=== PATIENT | male | born 1970 | race African-American/Black ===

== ENCOUNTER 2019-10-04 22:33 | Inpatient (IN) | payer SELFPAY ==
[2019-10-04 23:46] LABS: Troponin I 0.183 ng/mL (< 0.028)
[2019-10-04] MEDS ORDERED: Nitroglycerin 0.4 MG TAB (25 Tab Bottle) PO PRN (23:51)
[2019-10-04] MEDS ORDERED: cloNIDine 0.1 MG TAB PO PRN (23:52)
[2019-10-04] MEDS ORDERED: Acetaminophen 325 MG TAB PO PRN (23:53)
[2019-10-04] MEDS ORDERED: Ondansetron ODT 4 MG TAB PO PRN (23:53)
[2019-10-04] MEDS ORDERED: Calcium Carbonate 500 MG ChewTAB PO PRN (23:53)
[2019-10-04] MEDS ORDERED: Ondansetron PF 4 MG/2 ML Vial IVP PRN (23:53)
[2019-10-04] MEDS ORDERED: Nitroglycerin 2% Ointment 1 INCH/1 GM Packet TOP SCH (23:59)
[2019-10-05 00:01] LABS: CKMB 8.9 ng/mL (0-6.6)
[2019-10-05 00:09] LABS: Amphetamine Not Detected (NotDetected); Barbiturates Screen Not Detected (NotDetected); Benzodiazepine Screen Not Detected (NotDetected); Cocaine Metabolite Screen Not Detected (NotDetected); Medtox Control Line Valid? VALID (VALID); Medtox Reader # READER 4; Methadone Not Detected (NotDetected); Methamphetamine Not Detected (NotDetected); Opiate Screen Not Detected (NotDetected); Oxycodone Screen Not Detected (NotDetected); Phencyclidine (PCP) Not Detected (NotDetected); THC/Cannabinoid Screen Not Detected (NotDetected); Tricyclic Screen Not Detected (NotDetected)
[2019-10-05] MEDS ORDERED: Aspirin 325 MG TAB PO SCH (00:15)
[2019-10-05] MEDS ORDERED: Nitroglycerin 0.4 MG TAB 1 EACH ONE (00:57)
[2019-10-05] MEDS: Nitroglycerin 2% Ointment 1 INCH/1 GM Packet TOP SCH ×4 (02:36→20:07)
[2019-10-05 03:01] LABS: Troponin I 0.172 ng/mL (< 0.028)
[2019-10-05] MEDS ORDERED: Labetalol HCl 100 MG/20 ML VIAL SLOW IVP PRN (03:21)
[2019-10-05 05:00] LABS: Anion Gap 11 mmol/L (10-20); BUN (Urea Nitrogen) 29 mg/dL (8.9-20.6); Calc. Creatinine Clearance 0 mL/min (70-130); Calcium 8.6 mg/dL (7.8-10.44); Carbon Dioxide 24 mmol/L (22-29); Chloride 107 mmol/L (98-107); Estimated GFR-MDRD 47; Glucose 84 mg/dL (70-105); Magnesium 2.1 mg/dL (1.6-2.6); Potassium 3.9 mmol/L (3.5-5.1); Sodium 138 mmol/L (136-145)
[2019-10-05 06:36] LABS: Cardiac Risk 3.2 (Less than 4.5)
--- NOTE | 2019-10-05 06:37 | HP ---
PRIMARY CARE PHYSICIAN: [facility]. CHIEF COMPLAINT: Shortness of breath. HISTORY OF PRESENT ILLNESS: The patient is a 48-year-old male with family history of heart disease, presented to the emergency room at [place] with worsening shortness of breath that has been ongoing for the last 2 weeks. He also has intermittent palpitations with lightheadedness. The shortness of breath is mainly on [id number] exertion. He had mild chest tightness as well. No diaphoresis, nausea, vomiting, syncope, recent immobilization, travel, fever, or chills reported. He does not take any medications at this time. He does not go for regular physical checkups. In the emergency room at [place], his initial vital signs showed a temperature of 97.2, pulse rate of 93, respirations of 16, with a blood pressure of 180/116, O2 saturation 98% on room air. His chest x-ray was negative for significant pulmonary edema. His EKG showed sinus rhythm with PACs, left axis deviation, left anterior fascicular block, and left ventricular hypertrophy. The patient received aspirin and nitroglycerin and was transferred to this facility. He received another sublingual nitroglycerin at this facility. PAST MEDICAL HISTORY: 1. Family history of heart disease. 2. Hypertension, currently not on any medications. PAST SURGICAL HISTORY: Reviewed with the patient and none. ALLERGIES: NO KNOWN DRUG ALLERGIES. SOCIAL HISTORY: The patient smokes up to half pack a day for many years. He denies any alcohol or drug use. FAMILY HISTORY: Positive for premature coronary artery disease. His father was diagnosed with heart disease in his 40s. REVIEW OF SYSTEMS: All other review of systems reviewed and were found negative. CURRENT HOME MEDICATIONS: Reviewed with the patient and none. He takes ibuprofen on an as-needed basis. PHYSICAL EXAMINATION: VITAL SIGNS: As discussed above. GENERAL: A 48-year-old male, in no apparent distress at rest. HEENT: Head, atraumatic and normocephalic. Sclerae anicteric. Moist mucous membranes. No oral lesion. NECK: Supple. No JVD appreciated. No carotid bruit. LUNGS: Showed diminished air entry at bilateral bases. No wheezing, rales, or rhonchi. HEART: S1 and S2 present. Regular rate and rhythm. No rubs or gallops. There is 2/6 systolic murmur over the left lateral sternal border. ABDOMEN: Soft and obese. Bowel sounds present. No rebound or guarding. No costovertebral angle tenderness. EXTREMITIES: Trace edema in bilateral lower extremity. No calf tenderness. SKIN: Warm and dry. LYMPH NODES: No palpable lymph nodes in the neck. PERIPHERAL VASCULAR: Radial pulses palpable bilaterally. MUSCULOSKELETAL: No joint swelling or tenderness. LABORATORY FINDINGS: CBC showed WBC 7.7 with hemoglobin 13.7, hematocrit 41.8, and platelet count of 279. Chemistry showed sodium 139, potassium 3.8, chloride 106, bicarb 23, BUN 31, and creatinine 2.17. BNP was 918. Troponins 0.183 with CK of 581 and CK-MB 8.9. Urine drug screen was negative. IMAGING STUDIES: Chest x-ray and EKG by my review as discussed above. IMPRESSION: 1. Chest discomfort along with shortness of breath on exertion. 2. Suspected unstable angina. 3. Chronic kidney disease, stage 3. 4. Hypertension with hypertensive heart disease. 5. Family history of heart disease. 6. Chronic anemia suspected due to nutritional deficiency. 7. Elevated CK. 8. Ongoing tobacco abuse. PLAN: 1. The patient will be monitored on the telemetry unit. Echocardiogram will be obtained. We will consult Cardiology. The patient will be started on aspirin along with nitroglycerin patch. 2. Sublingual nitroglycerin as needed. We will start him on carvedilol. We will start statins once CK improves. The patient was counseled on lifestyle modification. We will keep him n.p.o. for Cardiology evaluation. Job ID: [id number]
[2019-10-05 06:52] VITALS: BMI 30.7
[2019-10-05 06:52] LABS: Hemoglobin A1c 5.3 % (4.0-6.0)
[2019-10-05] MEDS ORDERED: Labetalol HCl 100 MG/20 ML VIAL SLOW IVP SCH (07:45)
[2019-10-05] MEDS: Aspirin 325 mg Enteric Coated Tablet PO SCH (08:45)
[2019-10-05] MEDS: Famotidine 20 MG TAB PO SCH (08:45)
[2019-10-05] MEDS: Carvedilol 6.25 MG TAB PO SCH ×2 (08:46→16:24)
[2019-10-05] MEDS ORDERED: Communication Order-Pharmacy FS SCH (11:00)
[2019-10-05] MEDS ORDERED: Sodium Chloride 0.9% 1,000 ML IV SCH (11:00)
--- NOTE | 2019-10-05 15:05 | CON ---
DATE OF CONSULTATION: HISTORY: Bhupinder Ortega is a 48-year-old black male without previous significant health problems. Over the last 2 weeks, he has noted that his heart would beat very rapidly and then seemed to pause. He would become somewhat short of breath with this. He also states he would have chest tightness, which was fairly constant, although it did seem to be worse with exertion. He would have episodes of diaphoresis and nausea, but no vomiting associated with this. He ultimately went to the emergency room in [place] last night, was found to have a blood pressure of 180/116. He was given 4 chewable aspirin 81 mg and topical nitrates were placed. He was then transferred here and given one sublingual nitroglycerin here. He has since been started on carvedilol 12.5 mg b.i.d. He denies any chest discomfort at the present time. He also was found to have significantly elevated creatinine and denies any previous kidney problems, although he does take ibuprofen on a daily basis and he was instructed that he should stop that. PAST MEDICAL HISTORY: He denies any previous history of hypertension, diabetes , or hypercholesterolemia. MEDICATIONS: Ibuprofen one daily. ALLERGIES: LISINOPRIL. OPERATIONS: None. SOCIAL HISTORY: He smokes 1/2 pack per day, he did smoke up to one pack per day in the past. He also has 5 or 6 beers per day. He works building trailers. He states he does not have a drug plan. FAMILY HISTORY: Father of myocardial infarction at age 42. REVIEW OF SYSTEMS: Ten-point review of systems is otherwise unremarkable. PHYSICAL EXAMINATION: VITAL SIGNS: Blood pressure 172/104 and pulse of 76. HEENT: PERRL. NECK: Supple. CHEST: Clear. CARDIAC: S1 and S2 are normal without any S3, S4, or murmurs. Carotid upstrokes are normal without bruits. ABDOMEN: Normal bowel sounds without tenderness or organomegaly. EXTREMITIES: No clubbing, cyanosis, or edema. NEUROLOGIC: Grossly intact. SKIN: Warm and dry. LABORATORY DATA: EKG revealed sinus rhythm with PACs. Probable septal infarction, left ventricular hypertrophy with nonspecific T-wave changes. Hemoglobin 13.7, hematocrit 41.8, white count 7700, and platelets 279,000. Sodium 138, potassium 3.9, chloride 107, carbon dioxide 24, BUN 29, and creatinine 1.85 (creatinine in [place] was 2.17). Troponin-I is up to 0.183, CK-MB 8.9, and total CK 581. Cholesterol 175, triglycerides 107, HDL 54, and LDL 101. TSH is normal. BNP 917.9. IMPRESSION: 1. Probable [id number] myocardial infarction, type 1. 2. Acute coronary syndrome. 3. Hypertension, untreated. 4. Hypercholesterolemia. 5. Smoker. 6. Positive family history. 7. Acute kidney injury. He does take ibuprofen daily and was told that he needs to stop using that, to only use Tylenol. 8. 5 to 6 beers per day. PLAN: Echocardiogram will be performed. Mr. Ortega does need to undergo cardiac catheterization; however, I somewhat hesitant to go to the [facility] today with his current renal function. He is asymptomatic at the present time and it would be best to gently hydrate him prior to going to the cardiac [facility] laboratory. He will be started on intravenous saline 50 mL/h and creatinine will be rechecked in the morning. Risks of catheterization were discussed including , myocardial infarction, dye reaction, vascular injury, CVA, transfusion, limb loss, renal loss, etc. We discussed potential renal damage with his poor kidney function. We discussed possible dialysis, although that would seem to be low risk if he is hydrated overnight. Risks of stent placement were discussed including , myocardial infarction, emergent CABG, restenosis, stent thrombosis, vessel perforation, etc. He understands and is agreeable to proceed. He does not have a drug plan, and so I would use Plavix rather than Brilinta for dual-antiplatelet therapy. He has never had any gastrointestinal bleeding, stroke, and does not have any upcoming surgeries, and so a drug-eluting stent would be placed if needed. He understands and is agreeable to proceed. Job ID: [id number] MTDD
[2019-10-05] MEDS: Atorvastatin Calcium 40 MG TAB PO SCH (20:07)
[2019-10-05] MEDS ORDERED: Enoxaparin Sodium 40 MG/0.4 ML SYRINGE SC SCH (21:00)
[2019-10-06] MEDS: Nitroglycerin 2% Ointment 1 INCH/1 GM Packet TOP SCH ×2 (03:41→05:53)
[2019-10-06 05:07] LABS: Anion Gap 11 mmol/L (10-20); BUN (Urea Nitrogen) 34 mg/dL (8.9-20.6); Calc. Creatinine Clearance 64 mL/min (70-130); Calcium 8.8 mg/dL (7.8-10.44); Carbon Dioxide 23 mmol/L (22-29); Chloride 109 mmol/L (98-107); Estimated GFR-MDRD 44; Glucose 95 mg/dL (70-105); Potassium 3.9 mmol/L (3.5-5.1); Sodium 139 mmol/L (136-145)
[2019-10-06] MEDS: Carvedilol 6.25 MG TAB PO SCH ×2 (05:52→16:06)
[2019-10-06] MEDS: Aspirin 325 mg Enteric Coated Tablet PO SCH (05:53)
[2019-10-06] MEDS: Famotidine 20 MG TAB PO SCH ×2 (05:53→20:27)
[2019-10-06] MEDS ORDERED: Sodium Chloride 0.9% 1,000 ML IV SCH ×2 (06:00→08:46)
[2019-10-06] MEDS ORDERED: Heparin 10,000 UNITS/1 ML VIAL ONE (07:56)
[2019-10-06] MEDS ORDERED: Midazolam HCl 2 mg/2 ml Vial ONE (08:08)
[2019-10-06] MEDS ORDERED: Fentanyl 100 MCG/2 ML VIAL ONE (08:08)
[2019-10-06] MEDS ORDERED: Protamine Sulfate 50 MG/5 ML VIAL ONE (08:25)
[2019-10-06] MEDS ORDERED: hydrALAZINE 20 MG/ML VIAL ONE (08:26)
[2019-10-06] MEDS ORDERED: Sodium Chloride 0.9% 200 ML IV PRN (08:45)
[2019-10-06] MEDS ORDERED: Acetaminophen/Codeine 30-300mg Tablet PO PRN ×2 (08:45)
[2019-10-06] MEDS ORDERED: Iopamidol 370 76% 100 ML VIAL ONE (09:16)
[2019-10-06] MEDS: hydrALAZINE 25 MG TAB PO SCH ×3 (09:17→20:27)
[2019-10-06] MEDS ORDERED: cloNIDine 0.1 MG TAB PO SCH (10:00)
--- NOTE | 2019-10-06 13:01 | PDOC.HOSPP ---
- Subjective Encounter Date: 10/06/19 Encounter Time: 08:00 Subjective: ovenright, underwent cardiac catheter. this morning, chest pain resolved and has no complaints. - Objective Vital Signs & Weight: Vital Signs (12 hours) Temp Pulse Resp BP BP Pulse Ox 10/06/19 11:01 97.8 F 59 L 76 H 172/98 H 98 10/06/19 07:51 97.7 F 67 16 176/110 H 97 10/06/19 07:07 95 10/06/19 03:06 98.4 F 74 20 163/107 H 95 Weight Weight 220 lb I&O: 10/05/19 10/06/19 10/07/19 06:59 06:59 06:59 Intake Total 70 1611 Output Total 1225 750 Balance 70 386 -750 Result Diagrams: 10/06/19 04:02 Hospitalist ROS - Review of Systems Constitutional: denies: fever, chills, sweats, weakness, malaise, other Respiratory: denies: cough, dry, shortness of breath, hemoptysis, SOB with excertion, pleuritic pain, sputum, wheezing, other Cardiovascular: denies: chest pain, palpitations, orthopnea, paroxysmal noc. dyspnea, edema, light headedness, other Gastrointestinal: denies: nausea, vomiting, abdominal pain, diarrhea, constipation, melena, hematochezia, other Genitourinary: denies: dysuria, frequency, incontinence, hematuria, retention, other - Medication Medications: Active Medications Generic Name Dose Route Start Last Admin Trade Name Freq PRN Reason Stop Dose Admin Atorvastatin Calcium 40 mg 10/05/19 21:00 10/05/19 20:07 Lipitor PO 40 mg HS VENECIA Administration Carvedilol 12.5 mg 10/05/19 08:00 10/06/19 05:52 Coreg PO 12.5 mg BID-WM VENECIA Administration Hydralazine HCl 75 mg 10/06/19 09:00 10/06/19 09:17 Apresoline PO 75 mg TID VENECIA Administration Sodium Chloride 1,000 mls @ 125 mls/hr 10/06/19 08:46 10/06/19 09:32 Normal Saline 0.9% IV 10/06/19 15:00 1,000 mls .Q8H VENECIA Administration - Exam Neck: no JVD Heart: RRR, no murmur, no gallops, no rubs, normal peripheral pulses Respiratory: CTAB, no wheezes, no rales, no ronchi, normal chest expansion, no tachypnea, normal percussion Gastrointestinal: soft, non-tender, non-distended, normal bowel sounds, no palpable masses, no hepatomegaly, no splenomegaly, no bruit Extremities: no edema Psychiatric: normal affect, normal behavior Hosp A/P - Plan #NSTEMI -s/p cardiac cath, pending final report -conitnue asp, atorva, isosorbide dinitrate, coreg as per cardiology #HTN -currently poorly controlled -regimen recently adjusted by cardiology -continue to follow; goal BP per AHA < 130/80
[2019-10-06] MEDS ORDERED: Losartan 25 MG TAB PO SCH (13:15)
[2019-10-06] MEDS: Atorvastatin Calcium 40 MG TAB PO SCH (20:27)
[2019-10-06] MEDS: Isosorbide Dinitrate 20 MG TAB PO SCH (20:27)
[2019-10-07 05:15] LABS: Anion Gap 10 mmol/L (10-20); BUN (Urea Nitrogen) 25 mg/dL (8.9-20.6); Calc. Creatinine Clearance 67 mL/min (70-130); Calcium 8.5 mg/dL (7.8-10.44); Carbon Dioxide 23 mmol/L (22-29); Chloride 107 mmol/L (98-107); Estimated GFR-MDRD 51; Glucose 102 mg/dL (70-105); Potassium 3.8 mmol/L (3.5-5.1); Sodium 136 mmol/L (136-145)
[2019-10-07] MEDS: Carvedilol 6.25 MG TAB PO SCH ×2 (08:03→17:43)
[2019-10-07] MEDS: Isosorbide Dinitrate 20 MG TAB PO SCH (08:03)
[2019-10-07] MEDS: hydrALAZINE 25 MG TAB PO SCH ×2 (08:04→15:09)
[2019-10-07] MEDS: Famotidine 20 MG TAB PO SCH (08:04)
[2019-10-07] MEDS ORDERED: Aspirin 81 mg Enteric Coated Tablet PO SCH (09:00)
[2019-10-07] MEDS ORDERED: Losartan 25 MG TAB PO SCH (09:00)
[2019-10-07 15:09] VITALS: TEMP 98.3
[2019-10-07 17:44] VITALS: BP 159/98
--- NOTE | 2019-10-08 13:34 | DIS ---
DATE OF ADMISSION: 10/04/2019 DATE OF DISCHARGE: 10/07/2019 HISTORY OF PRESENT ILLNESS: Mr. Ortega is a 48-year-old male with a family history of heart disease, who presented with worsening shortness of breath, intermittent palpitations, and lightheadedness for the past 2 weeks. He was diagnosed with NSTEMI. Cardiology was consulted and the left heart catheterization was carried out, which showed mild coronary artery disease. In addition, echocardiogram showed an ejection fraction of 40% to 45% and E/A flow reversal suggestive of diastolic dysfunction. The patient has both reduced systolic function and diastolic dysfunction. The patient's medications were adjusted by the Cardiology Service. On the day of discharge, his symptoms have resolved. PHYSICAL EXAMINATION: VITAL SIGNS: Blood pressure was 131/87, pulse 71, respiratory rate 16, oxygen saturation 98% on room air, temperature 98.3. GENERAL: No apparent distress. NECK: No JVD. HEART: Regular rate and rhythm. No murmur. No gallops. No rubs. RESPIRATORY: Clear to auscultation bilaterally. No wheezing, rales, or rhonchi. No tachypnea. GI: Soft, nontender, nondistended. Normal bowel sounds. EXTREMITY: No edema. MEDICATIONS: New Medications: 1. Nitroglycerin. 2. Aspirin. 3. Atorvastatin. 4. Carvedilol. 5. Hydralazine. 6. Isosorbide dinitrate. Discontinued medication: Ibuprofen. Job ID: [id number]
== END 2019-10-07 19:20 | disposition home or self-care (01) | DRG 281 ==
LOC: ERS 22:33 → OBSVTOIN 23:45 → 2NO 23:45
PROVIDERS: ADMIT Internal Medicine; ATTEND Internal Medicine
PROC: 4A023N7 Measurement of Cardiac Sampling and Pressure, Left Heart, Percutaneous Approach (ICD-10-PCS; principal; 2019-10-06)
PROC: B2151ZZ Fluoroscopy of Left Heart using Low Osmolar Contrast (ICD-10-PCS; 2019-10-06)
PROC: B2111ZZ Fluoroscopy of Multiple Coronary Arteries using Low Osmolar Contrast (ICD-10-PCS; 2019-10-06)
DX: I21.4 Non-ST elevation (NSTEMI) myocardial infarction (principal); N17.9 Acute kidney failure, unspecified; I25.10 Atherosclerotic heart disease of native coronary artery without angina pectoris; I44.4 Left anterior fascicular block; N18.3 Chronic kidney disease, stage 3 (moderate); F17.210 Nicotine dependence, cigarettes, uncomplicated; E78.00 Pure hypercholesterolemia, unspecified; I13.10 Hypertensive heart and chronic kidney disease without heart failure, with stage 1 through stage 4 chronic kidney disease, or unspecified chronic kidney disease; Z79.899 Other long term (current) drug therapy
CPT/HCPCS: 36415; 80048; 80061; 80306; 82550; 82553; 83036; 83735; 84443; 84484; 85347; 93306; 93458; 93798; 94760; 99152; C1769; J0360; J1644; J1650; J2250; J2720; J3010; Q9967

== ENCOUNTER 2020-05-01 18:29 | Inpatient (IN) | payer SELFPAY ==
[2020-05-01] MEDS ORDERED: Nitroglycerin 0.4 MG TAB (25 Tab Bottle) SL PRN (20:05)
[2020-05-01] MEDS ORDERED: Heparin 10,000 UNITS/ 10 ML VIAL SLOW IVP SCH (20:15)
[2020-05-01] MEDS ORDERED: Heparin 25,000 units/D5W 500 ML IVPB SCH (20:15)
--- NOTE | 2020-05-01 21:20 | PDOC.BPN ---
- Brief Progress Note [id number] HP dictated
[2020-05-01 21:22] LABS: Hemoglobin 11.1 g/dL (14.0-18.0); Platelet Count 230 thou/uL (130-400)
[2020-05-01 21:44] LABS: Troponin I 0.137 ng/mL (< 0.028)
--- NOTE | 2020-05-01 21:55 | PDOC.BPN ---
- Brief Progress Note [id number] HP dictated
[2020-05-02 02:03] LABS: Troponin I 0.165 ng/mL (< 0.028)
[2020-05-02 02:39] VITALS: BMI 31.4
--- NOTE | 2020-05-02 02:42 | HP ---
CHIEF COMPLAINT: Chest pain. HISTORY OF PRESENT ILLNESS: Mr. Ortega is a 49-year-old male with past medical history of hypertension, myocardial infarction, being transferred from [facility] after he presented with chest pain. The pain is described as left-sided, pressure in nature. He did have some nausea and has mild headache. No diaphoresis. No shortness of breath. The patient has history of coronary artery disease with NSTEMI diagnosed around 7 months ago. He had a heart catheterization, but no stenting was placed. He does continue to smoke. He takes aspirin once a day. Pain feels better with leaning forward. Workup in the emergency room, the patient had an elevated troponin of 0.142. The patient was given aspirin, 1 dose of Lovenox and transferred to our medical facility for further management. PAST MEDICAL HISTORY: 1. Myocardial infarction. 2. Hypertension. 3. Hyperlipidemia. 4. Congestive heart failure. 5. CKD. PAST SURGICAL HISTORY: Heart cath. SOCIAL HISTORY: The patient is a smoker, smokes half a pack a day. He drinks 5 drinks a day. FAMILY HISTORY: Reviewed and noncontributory. HOME MEDICATIONS: See home medication reconciliation form for updated medications. ALLERGIES: ALLERGIC TO LISINOPRIL. REVIEW OF SYSTEMS: Review of 14 systems negative except what is mentioned in history of present illness. PHYSICAL EXAMINATION: GENERAL: The patient is awake, alert, not in acute distress. VITAL SIGNS: Blood pressure is 170/90, pulse is 79, respiratory rate is 10, oxygen saturation 98% on room air, temperature 98.6. HEAD AND NECK: Normocephalic, atraumatic. NECK: Supple. No JVD. CHEST: Fair bilateral air entry. HEART: S1, S2. Regular. ABDOMEN: Soft, nontender. Bowel sounds present. NEUROLOGIC: Awake, alert, and oriented. No focal deficits. PSYCHIATRIC: Unable to assess. EXTREMITIES: No clubbing. No cyanosis. LABORATORY DATA: WBC 7.4, hemoglobin 11.5, platelets 237. Sodium 140; potassium 3.7; BUN is 37; creatinine 2.3, baseline around 1.9. Initial troponin 0.142, repeat troponin is 0.138. BNP 646. EKG showed a sinus rhythm, rate of 78 with infrequent PVCs. There is ST elevation in one lead, V3. No reciprocal changes. Labs as mentioned above in history of present illness. ASSESSMENT AND PLAN: 1. Sxv-QZ-hgwnivwyx myocardial infarction. 2. Coronary artery disease. 3. Congestive heart failure. 4. Hypertension. 5. Hyperlipidemia. 6. Cigarette smoker. PLAN: 1. Admit. 2. Telemetry monitoring. 3. Aspirin. 4. Lovenox was given in the emergency room, reassess in a.m. 5. Consult Cardiology for evaluation and further recommendations. 6. We will continue to trend troponin. 7. Reconcile home medications. 8. DVT prophylaxis as appropriate. 9. Counseling for tobacco cessation while in the hospital. 10. DVT prophylaxis as appropriate. 11. Expected length of stay, 2 midnights or more. Job ID: [id number]
[2020-05-02 07:17] VITALS: TEMP 98.1
[2020-05-02] MEDS ORDERED: Carvedilol 6.25 MG TAB PO SCH (08:00)
[2020-05-02 08:26] LABS: SARS-CoV-2 MS2 Positive; SARS-CoV-2 N Gene Negative; SARS-CoV-2 S Gene Negative; SARS-CoV-2 by NAA Not Detected (NotDetected); SARS-CoV-2 orf1ab Negative
[2020-05-02] MEDS ORDERED: Isosorbide Dinitrate 20 MG TAB PO SCH (09:00)
[2020-05-02] MEDS ORDERED: hydrALAZINE 25 MG TAB PO SCH ×2 (09:00→15:00)
[2020-05-02] MEDS ORDERED: Aspirin 325 mg Enteric Coated Tablet PO SCH (09:00)
--- NOTE | 2020-05-02 12:06 | CON ---
DATE OF CONSULTATION: HISTORY OF PRESENT ILLNESS: Bhupinder Ortega is a 49-year-old black male, who I evaluated in September of 2019. He complained of chest tightness which was fairly constant, but did seem to get worse with exertion. He had diaphoresis and nausea with this. Ultimately, he went to the emergency room in [place] and was found to have a blood pressure of 180/116. He was placed on carvedilol. At that time, he was not taking any medications for his hypertension. Echocardiogram revealed severe left ventricular hypertrophy with ejection fraction of 40% to 45%, evidence for diastolic dysfunction, mild left atrial enlargement, mild mitral regurgitation, and mild tricuspid regurgitation. During that admission, his troponin I was 0.183. He underwent cardiac catheterization, which only revealed a 10% mid LAD lesion. He has been placed on increasing medications. PERLA inhibitor and ARBs have been avoided due to his chronic kidney disease. Instead, he has been placed on increasing doses of hydralazine and isosorbide. At times, he will have some peripheral edema. He has been placed on furosemide 20 mg daily. Over the last week, he has noticed episodes of left-sided chest discomfort. The pain is mildly pleuritic in nature. The pain usually occurs when he is out doing something. It is not worse when he is supine in bed. Does feel better if he leans forward. Each episode whenever he has discomfort lasts approximately 2 minutes with 5 to 10 seconds of pain and then 10 to 15 seconds of no pain and then pain recurring with repetitive nature of this for 2 minutes. He came to the emergency room for further evaluation. At the present time with deep inspiration, he does not have any chest discomfort. PAST MEDICAL HISTORY: Hypertension, hypercholesterolemia. No history of diabetes. Chronic kidney disease. MEDICATIONS: At home, include, 1. Carvedilol 25 mg b.i.d. 2. Atorvastatin 40 mg at bedtime (this should be 80 mg at bedtime). 3. Catapres 0.1 mg b.i.d. 4. Furosemide 20 mg daily. 5. Hydralazine 100 t.i.d. 6. Isosorbide mononitrate 20 b.i.d. ALLERGIES: LISINOPRIL. SOCIAL HISTORY: He smokes approximately 5 cigarettes per day. REVIEW OF SYSTEMS: Unremarkable. PHYSICAL EXAMINATION: VITAL SIGNS: Blood pressure 167/94, pulse 74. HEENT: PERRL. NECK: Supple. CHEST: Clear. CARDIAC: S1 and S2 normal without any S3, S4, or murmurs. ABDOMEN: Normal bowel sounds. EXTREMITIES: Revealed no clubbing, cyanosis, or edema. NEUROLOGIC: Grossly intact. SKIN: Warm and dry. MUSCULOSKELETAL: Revealed palpable tenderness of the left upper chest that reproduces pain. LABORATORY DATA: EKG revealed sinus rhythm with left ventricular hypertrophy with repolarization abnormalities. Troponin I 0.165. BNP 646.8. Cholesterol 169, triglycerides 162, HDL 57, LDL 80. Sodium 140, potassium 3.7, chloride 106, carbon dioxide 22, BUN 37, creatinine 2.31. Hemoglobin 11.5, hematocrit 34.2, white count 7400, platelets 237,000. COVID negative. IMPRESSION: 1. Chest wall pain with palpable tenderness. 2. 10% mid LAD lesion on catheterization in September 2019. 3. Fis-YK-ueyhspkae myocardial infarction, type 2 with chronically elevated troponin I's. 4. Hypertension, poorly controlled. 5. Hypercholesterolemia-according to my records, he should be on 80 mg of atorvastatin and not 40. 6. Smoker. PLAN: Carvedilol will be increased back to his home dose of 25 mg b.i.d. as well as hydralazine to 100 mg t.i.d. Atorvastatin should be 80 mg daily. His current pain is not cardiac related. His chronically elevated troponin I is probably due to his chronic kidney disease. No further cardiac evaluation is warranted. Unfortunately with his kidney disease, he should avoid anti-inflammatory medications. He will be tried and also he will be started on Flexeril to see if this helps with his discomfort. Echocardiogram will be repeated to reassess left ventricular function. Job ID: [id number] [facility]
[2020-05-02] MEDS ORDERED: Cyclobenzaprine 10 MG TAB PO SCH (15:00)
[2020-05-02 15:12] VITALS: BP 164/109
[2020-05-02] MEDS ORDERED: Carvedilol 25 MG TAB PO SCH (17:00)
--- NOTE | 2020-05-02 18:16 | PDOC.DS.DS ---
Provider - Provider Date of Admission: 05/01/20 19:53 Date of Discharge: 05/02/20 Admitting Provider: Chago Moscoso MD Consultations: Cardiology (Dr. Lake) Primary Care Physician: Oksana Zarate Course - Hospital Course Hospital Course: Discharge Diagnoses: 1. Chest pain possibly secondary to hypertensive urgency 2. Elevated troponin likely secondary to demand ischemia 3. LUZ versus worsening CKD 4. Anemia Brief HPI: 49-year-old male patient who presented to the emergency room with intermittent chest pain for the past 1 week. Patient states that he was compliant with his blood pressure medicine. He had a cardiac cath earlier this year no stents were placed. When he presented to the ER his blood pressure was 155/101. EKG revealed sinus rhythm with LVH and repolarization abnormalities. His troponin was 0.165. Hospital Course: 1. Chest pain possibly secondary to hypertensive urgency: the patient's troponin ranged from 0.13 to 0.165. His blood pressure initially was 165/23 and increased to 191/108. He was resumed on his home blood pressure medicines and was started on isosorbide 20 mg twice daily. His blood pressure was checked multiple times and remained stable around 160/100. Patient states his chest pain had resolved denied any shortness of breath on exertion. Dr. Lake was consulted and recommended an echo, however since the patient wants to go home this will be done as an outpatient. He was discharged on aspirin 81 mg daily, and atorvastatin was increased to 80 mg daily. He will be prescribed nitro as well on discharge and imdur 20 mg bid. 2. Possible LUZ on CKD: the patient' screatinine was 2.3 while in the hospital. He denies difficulty urinating. This may be from his chronic hypertension. Patient to get a repeat BMP in a week Pertinent Studies: Chest X ray 05/01: normal COVID: negative - Labs Lab Results: 05/01/20 21:13 Abnormal Lab Results - Last 48 hrs 05/01/20 18:34: Troponin I 0.138 H 05/01/20 21:13: Troponin I 0.137 H 05/01/20 21:13: Hgb 11.1 L, Hct 33.2 L 05/01/20 21:13: APTT 43.7 H 05/02/20 01:01: Troponin I 0.165 H 05/02/20 02:19: APTT 37.9 H 05/02/20 02:19: Triglycerides 162 H - Physical Exam Vitals: Vital Signs (12 hours) Temp Pulse Resp BP BP Pulse Ox 05/02/20 15:12 98.1 F 75 18 164/109 H 100 05/02/20 15:11 75 164/109 H 05/02/20 10:36 74 167/94 H 05/02/20 07:14 98.1 F 79 18 191/108 H 100 Weight Weight 225 lb Physical Exam: The patient was seen and examined on the day of discharge. General: alert, awake, oriented times three CV: RRR, no murmurs, rubs, gallops Lungs: CTAB Abdomen: +BS, soft, nontender, nondistended Extremities: no edema Problem - Time spent with Patient (mins): 35 Plan - Discharge Medications Prescriptions: Nitroglycerin [Nitrostat] 0.4 mg SL Q5MIN PRN #30 tab PRN Reason: Chest Pain Aspirin [Aspirin EC] 81 mg PO DAILY #30 tablet. Atorvastatin Calcium 80 mg PO HS #30 tablet Isosorbide Dinitrate [Isordil] 20 mg PO BID #60 tab Home Medications: Medication Instructions Recorded Confirmed Type Isosorbide Dinitrate [Isordil] 20 mg PO BID #60 tab 10/07/19 05/02/20 Rx Aspirin [Aspirin EC] 81 mg PO DAILY #30 tablet. 05/02/20 Rx Atorvastatin Calcium 80 mg PO HS #30 tablet 05/02/20 Rx Carvedilol [Coreg] 25 mg PO BID 05/02/20 05/02/20 History Furosemide [Lasix] 20 mg PO DAILY 05/02/20 05/02/20 History Isosorbide Dinitrate [Isordil] 20 mg PO BID #60 tab 05/02/20 Rx Nitroglycerin [Nitrostat] 0.4 mg SL Q5MIN PRN #30 tab 05/02/20 Rx cloNIDine [Catapres] 0.1 mg PO BID 05/02/20 05/02/20 History hydrALAZINE HCl [Hydralazine HCl] 100 mg PO TID 05/02/20 05/02/20 History Allergies: lisinopril [From Prinivil] Allergy (Verified 10/05/19 08:44) - Discharge Instructions Discharge Instructions:: You presented with chest pain. This possibly could have been from elevated blood pressure. Take your blood pressure medicine daily. Start taking imdur 20 mg twice daily. Increase your atorvastatin to 80 mg. Follow up with Dr. Lake in a week and get a repeat ECHO in a week. Your kidney number was elevated at 2.3. Please have this repeated in a week along with a possible urine sample. Activity:: Activity as Tolerated Nourishment:: Heart Healthy Diet - Follow up Plan Referrals: Cardiac Rehab - [place] [Outside] - 7 Days (Your doctor has ordered outpatient cardiac rehab for you to begin within 1-2 weeks after you go home from the hospital. The location nearest to you is the [facility]. The front office in [place] will call you in 3-5 days to get you scheduled for your evaluation. If you do not receive a call, please reach out to them at [phone] and request an appointment. Should you have any trouble or need assistance, please call the cardiac rehab main line in [place] at [phone]) Carole Trent MD [Primary Care Provider] - 7 Days (Please call to make an appointment to follow-up with blood pressure medications. ) Disposition: HOME Quality - Care Measures CORE MEASURES:: N/A
[2020-05-02] MEDS ORDERED: cloNIDine 0.1 MG TAB PO SCH (21:00)
[2020-05-02] MEDS ORDERED: Atorvastatin Calcium 40 MG TAB PO SCH ×2 (21:00)
== END 2020-05-02 18:22 | disposition home or self-care (01) | DRG 281 ==
LOC: ERS 18:29 → ERHOLD 19:53 → 2NO 05-02 02:04
PROVIDERS: ADMIT Internal Medicine; ATTEND Internal Medicine
DX: I16.0 Hypertensive urgency (principal); I21.A1 Myocardial infarction type 2; N17.9 Acute kidney failure, unspecified; Z20.828 Contact with and (suspected) exposure to other viral communicable diseases; N18.9 Chronic kidney disease, unspecified; D63.1 Anemia in chronic kidney disease; I13.0 Hypertensive heart and chronic kidney disease with heart failure and stage 1 through stage 4 chronic kidney disease, or unspecified chronic kidney disease; I50.9 Heart failure, unspecified; E78.00 Pure hypercholesterolemia, unspecified; E78.5 Hyperlipidemia, unspecified; F17.210 Nicotine dependence, cigarettes, uncomplicated; I25.10 Atherosclerotic heart disease of native coronary artery without angina pectoris; I08.1 Rheumatic disorders of both mitral and tricuspid valves; Z88.8 Allergy status to other drugs, medicaments and biological substances; I25.2 Old myocardial infarction; Z79.899 Other long term (current) drug therapy
CPT/HCPCS: 36415; 80061; 84484; 85730; 87635; 93005; 93306; J1644; U0003